=== PATIENT | female | born 1960 | race African-American/Black ===

== ENCOUNTER 2020-08-13 09:34 | Day surgery (SDC) | payer BC, OTHER ==
[2020-08-07 14:21] VITALS: BMI 34.4
[2020-08-13] MEDS ORDERED: PROPOFOL 20 ML ONE ×2 (10:23)
[2020-08-13 12:14] VITALS: BP 120/78; PULSE 77; TEMP 98
== END 2020-08-13 12:14 | disposition home or self-care (01) ==
LOC: FASU-ENDO 09:34
PROVIDERS: ATTEND Internal Medicine Gastroenterology
PROC: 0DJD8ZZ Inspection of Lower Intestinal Tract, Via Natural or Artificial Opening Endoscopic (ICD-10-PCS; principal; 2020-08-13 10:35)
DX: Z09 Encounter for follow-up examination after completed treatment for conditions other than malignant neoplasm (principal); Z86.010 Personal history of colon polyps